=== PATIENT | male | born 1985 | race Caucasian/White ===

== ENCOUNTER → 2024-02-10 | Outpatient (REF) | payer OTHER ==
[2024-02-10 18:32] LABS: PERCENT SATURATION 55.2 % (19.7-50.0)
[2024-02-10 18:34] LABS: FERRITIN 135.1 NG/ML (10.5-307.3)
== END ==
LOC: M LAB REF 17:23
PROVIDERS: ATTEND Internal Medicine
DX: R10.13 Epigastric pain (principal)